=== PATIENT | female | born 1955 | race Caucasian/White ===

== ENCOUNTER → 2017-01-22 | Outpatient (CLI) | payer MEDICARE ==
[2015-04-23 02:30] VITALS: BP 115/71
[~2017-01-22] MED LIST: ACAM333T7 PO; CHLO25CA9 PO; FOLI400T4 PO; GABA-586 PO; HYDR-2666 PO; LAMO100T PO; MULT-91 PO; NAPR500T3 PO; QUET300T5 PO; TRAM50TA PO; TRAZ300T2 PO; VITA1CAP15 PO; [UNRECOGNIZED DRUG - CODE] NS
--- NOTE | 2017-01-22 15:00 | RAD ---
Indication: Chronic left hip pain and low back pain. Time of exam 1449 hours. Standing lateral view was performed. There is normal curvature and alignment of the lumbar spine. There is mild central compression fracture deformity involving the L1 vertebral body, age indeterminate. Remaining lumbar vertebrae show normal stature. There is multilevel degenerative disc disease with variable disc space narrowing and marginal spurring. Abdominal aorta is heavily calcified. Impression: Age-indeterminate L1 compression fracture. There is multilevel spondylosis.
--- NOTE | 2017-01-22 15:01 | RAD ---
Indication: Chronic left hip pain. Time of exam 1449 hours. 2 views left hip demonstrate moderate degenerative changes with joint space narrowing and spurring at the femoral head neck junction. No fracture is seen. The left sided rami are intact. Impression: Degenerative changes. No acute bony abnormality is detected.
--- NOTE | 2017-01-22 15:02 | RAD ---
Indication: Low back pain and left hip pain. Time of exam 1449 hours. Flexion-extension views were performed. There is normal curvature of the lumbar spine. There is minimal retrolisthesis of L2 on L3 on both the flexion and extension. There is also mild retrolisthesis of L1 on L2 during flexion-extension. No abnormal motion is identified. Compression fracture deformity L1 is again noted, age indeterminate. There is multilevel degenerative disc disease and facet arthropathy. Aorta is heavily calcified. Impression: Lumbar spondylosis and listhesis. No abnormal motion is identified. There is an age-indeterminate L1 compression fracture.
== END | disposition home or self-care (01) ==
LOC: RAD 14:20
PROVIDERS: ATTEND Neurological Surgery
DX: M43.16 Spondylolisthesis, lumbar region (principal); M25.552 Pain in left hip; M54.5 Low back pain; G89.29 Other chronic pain
CPT/HCPCS: 72020; 72120; 73502

== ENCOUNTER → 2017-03-01 | Outpatient (CLI) | payer MEDICARE ==
[~2017-03-01] VITALS: Ht 165.1 cm; Wt 59.9 kg
[~2017-03-01] MED LIST changes: +BUPIVACAINE 0.5% 50 ML VIAL. IJ ONE; -HYDR-2666 PO; +HYDR-2758 PO; +IOHEXOL 300 MG/ML 10ML VIAL. IJ ONE; +LIDOCAINE 1% / SOD BICARB 8.4% 20 ML VIAL. IJ ONE; +methylPREDNISolone ACETATE 80 MG/ML VIAL. IM ONE
[2017-03-01 10:15] VITALS: BP 103/60
--- NOTE | 2017-03-01 11:42 | RAD ---
Fluoroscopically guided left hip joint injection, 03/01/2017: History: Osteoarthritis, pain Under local anesthesia, aseptic conditions and fluoroscopic guidance a 22-gauge spinal needle was passed into the left hip joint via an anterior approach. A small amount of iodinated contrast material was injected to confirm intra-articular positioning following which 80 mg of Depo-Medrol mixed with 4 cc of 0.5% Sensorcaine was injected into the joint as requested. The needle was then removed and hemostasis obtained. 1.6 minutes of fluoroscopy time was utilized. 2 fluoroscopic spot images were recorded. The patient tolerated the procedure well and left the department in good condition.
== END | disposition home or self-care (01) ==
LOC: RAD 09:58
PROVIDERS: ATTEND Nurse Practitioner Gerontology
DX: M16.12 Unilateral primary osteoarthritis, left hip (principal)
CPT/HCPCS: 20605; 77002; J1040; J3490; Q9967

== ENCOUNTER → 2017-03-14 | Outpatient (CLI) | payer MEDICARE ==
[~2017-03-14] VITALS: Ht 165.1 cm; Wt 61.2 kg
[~2017-03-14] MED LIST changes: -BUPIVACAINE 0.5% 50 ML VIAL. IJ ONE; +BUPIVACAINE 0.5% 50 ML VIAL. INJ ONE; -IOHEXOL 300 MG/ML 10ML VIAL. IJ ONE; +IOHEXOL 300 MG/ML 50 ML VIAL. IJ ONE; -LIDOCAINE 1% / SOD BICARB 8.4% 20 ML VIAL. IJ ONE; -methylPREDNISolone ACETATE 80 MG/ML VIAL. IM ONE; +methylPREDNISolone ACETATE 80 MG/ML VIAL. INT ART ONE
[2017-03-14 11:03] VITALS: BP 105/62
--- NOTE | 2017-03-14 11:34 | RAD ---
Indication: Right hip pain. Patient presented for a right hip steroid injection. The patient was brought to the fluoroscopic suite and placed on the table in the supine position. The skin was marked. The skin was then prepped and draped in the usual sterile fashion. A small amount of 1% lidocaine was utilized for local anesthesia. 20-gauge spinal needle was advanced into the right hip and placed with the tip at the femoral head neck junction laterally. 80 mg of Depo-Medrol and 3 cc of Sensorcaine was injected. The needle was withdrawn and hemostasis was obtained. The patient tolerated the procedure well. Impression: Successful fluoroscopically assisted right hip injection of steroid and Sensorcaine solution, as described.
== END | disposition home or self-care (01) ==
LOC: RAD 10:42
PROVIDERS: ATTEND Nurse Practitioner Gerontology
DX: M25.551 Pain in right hip (principal)
CPT/HCPCS: 20610; 77002; J1040; J3490

== ENCOUNTER 2017-06-05 16:56 | Emergency (ER) | payer MEDICARE ==
[~2017-06-05] VITALS: Ht 165.1 cm; Wt 59.0 kg
[~2017-06-05 16:56] MED LIST changes: -BUPIVACAINE 0.5% 50 ML VIAL. INJ ONE; -IOHEXOL 300 MG/ML 50 ML VIAL. IJ ONE; +MULT-223 PO; -MULT-91 PO; -methylPREDNISolone ACETATE 80 MG/ML VIAL. INT ART ONE
[2017-06-05 17:02] VITALS: BP 123/61
[2017-06-05] MEDS ORDERED: CLIN150C14 PO (17:35)
--- NOTE | 2017-06-05 17:36 | PHYS DOC ---
Past Medical History Past Medical History: Alcoholism, Bipolar, HI, Other Additional Past Medical Histor: ETOH ABUSE, HI, CAN'T REMEMBER HX,OSTEOPOROSIS, DJD Past Surgical History: Angioplasty, Other Additional Past Surgical Histo: CARDIAC STENT,FINGER, FOOT Additional Information: 0.5 PPD Alcohol Use: Heavy Additional Information: PT REPORTS STOPPED DRINKING Drug Use: None Adult General Chief Complaint Chief Complaint: INSECT BITE HPI HPI Patient is a 62 year old female presents to the emergency department stating that she was bit by something on Sunday. She states that she has redness from the elbow without relief. She has a wound noted on the outer portion of her left forearm that appears to be draining thick yellow secretions. The area appears to be nonfluctuant. Patient denies fever, chills or any nausea vomiting. Patient continues to state she is unsure when her last tetanus immunization occurred. Patient states she believes she was bit by a brown recluse. Review of Systems Review of Systems Constitutional: Denies fever or chills [] Eyes: Denies change in visual acuity, redness, or eye pain [] HENT: Denies nasal congestion or sore throat [] Respiratory: Denies cough or shortness of breath [] Cardiovascular: No additional information not addressed in HPI [] GI: Denies abdominal pain, nausea, vomiting, bloody stools or diarrhea [] : Denies dysuria or hematuria [] Musculoskeletal: Denies back pain or joint pain [] Integument: Denies rash or skin lesions. Complaint of abscess left forearm Neurologic: Denies headache, focal weakness or sensory changes [] Endocrine: Denies polyuria or polydipsia [] Allergies Allergies Allergies Coded Allergies Type Severity Reaction Last Updated Verified Sulfa (Sulfonamide Antibiotics) Allergy Intermediate 03/01/17 Yes Physical Exam Physical Exam Constitutional: Well developed, well nourished, no acute distress, non-toxic appearance. [] HENT: Normocephalic, atraumatic, bilateral external ears normal, oropharynx moist, no oral exudates, nose normal. [] Eyes: PERRLA, EOMI, conjunctiva normal, no discharge. [] Neck: Normal range of motion, no tenderness, supple, no stridor. [] Cardiovascular:Heart rate regular rhythm Lungs & Thorax: no respiratory distress noted Skin: Warm, dry, no erythema, no rash. Patient with a large red area approximate size of a golf ball to the left outer forearm. She does have redness from the elbow although way down into the hand. She does have swelling noted. Peripheral pulses are 2+ cap refill brisk less than 2 seconds. Patient does have some slight yellow drainage coming from the area. However there is no induration noted, nonfluctuant Back: No tenderness Extremities: No tenderness, no cyanosis, no clubbing, ROM intact, no edema. [] Neurologic: Alert and oriented X 3, normal motor function, normal sensory function, no focal deficits noted. [] Psychologic: Affect normal, judgement normal, mood normal. [] Current Patient Data Vital Signs Vital Signs Date Time Temp Pulse Resp B/P (MAP) Pulse Ox O2 Delivery O2 Flow Rate FiO2 06/05/17 17:02 97.7 104 20 123/61 (81) 98 Room Air 97.7 EKG EKG [] Radiology/Procedures Radiology/Procedures [] Course & Med Decision Making Course & Med Decision Making Pertinent Labs and Imaging studies reviewed. (See chart for details) Spoke with patient in regards to having an ultrasound done to check for abscess depth. Also recommended lab work, and admission for IV antibiotics. Patient refuses stating that she did not think that coming into the emergency department with create this much of a problem. Patient is going to sign out AGAINST MEDICAL ADVICE. She will however allow us to update her tetanus immunization. We will place her on clindamycin at discharge. Recommended warm moist packs to the area several times a day. Recommendations to follow-up in 2- 3 days with a primary care physician or return back to emergency department. Once again patient has been provided with risks and benefits of being admitted as well as leaving AGAINST MEDICAL ADVICE. QUESTIONS and concerns been answered at patient's bedside. [] Dragon Disclaimer Dragon Disclaimer This electronic medical record was generated, in whole or in part, using a voice recognition dictation system. Departure Departure Impression: Primary Impression: Cellulitis and abscess of upper arm and forearm Additional Impression: Left against medical advice Disposition: AGAINST MEDICAL ADVICE Condition: STABLE Referrals: JOHANNE LEO MD (PCP) Patient Instructions: Abscess, [id number] Additional Instructions: You have been recommended to have labs obtained with an ultrasound and admission. You have refused to have left AGAINST MEDICAL ADVICE. However if the area starts increasing and redness or you start running fevers or develop nausea vomiting please return back to the emergency department for further evaluation. Activity as tolerated. Medication as prescribed. Tylenol or ibuprofen for pain and discomfort. Warm moist packs to the area 5 times a day. Follow-up primary care physician in the next 3-5 days. Return back to emergency prior signs symptoms of become worse. Scripts Clindamycin Hcl (CLINDAMYCIN HCL) 150 Mg Capsule 3 CAP PO TID for 10 Days, CAP Prov: CARMELO TUBBS APRN 06/05/17 Problem Qualifiers CARMELO TUBBS APRN Jun 05, 2017 17:36
[2017-06-05] MEDS ORDERED: DIPHTH,PERTUSS(ACELL),TET TOX 0.5 ML DISP.SYRIN. VAX IM ONE (17:45)
== END 2017-06-05 17:48 | disposition left against medical advice (07) ==
LOC: ER 16:56
DX: L03.114 Cellulitis of left upper limb (principal); F10.20 Alcohol dependence, uncomplicated; I25.2 Old myocardial infarction; M81.0 Age-related osteoporosis without current pathological fracture; F17.200 Nicotine dependence, unspecified, uncomplicated; Z88.2 Allergy status to sulfonamides; Z95.5 Presence of coronary angioplasty implant and graft
CPT/HCPCS: 90471; 90715; 99283-25